=== PATIENT | male | born 1950 | race Caucasian/White ===

== ENCOUNTER 2017-06-09 22:43 | Inpatient (IN) | payer OTHER ==
[~2017-06-09] VITALS: Ht 175.3 cm; Wt 79.1 kg
[~2017-06-09 22:43] MED LIST: ADULT LOW DOSE81 M1 PO; LEVOTHYROXINE75 MCG PO; LISINOPRIL10 MG PO; OMEPRAZOLE20 MG PO; SF 5000 PLUS51 GM DT; SIMVASTATIN20 MG PO
[2017-06-09 23:18] LABS: HEMATOCRIT 43.7 % (38.0-50.0); MCH 31.7 PG (29.0-34.0); MCV 90.7 FL (86-99); MEAN PLAT.VOLUME 9.2 uM^3 (9.0-12.4); PLATELET COUNT 301 K/uL (156-360); RBC DIS.WIDTH-CV 12.5 % (11.8-14.6); RBC DIS.WIDTH-SD 41.9 % (39-53); RED BLOOD COUNT 4.82 M/uL (4.00-5.50)
[2017-06-09 23:26] LABS: CHLORIDE 108 mEq/L (99-109); POTASSIUM 5.2 mEq/L (3.7-5.4); SODIUM 138 mEq/L (136-147)
[2017-06-09 23:29] LABS: GLUCOSE 159 mg/dL (70-99)
[2017-06-09 23:30] LABS: ANION GAP 13 MEQ/L (2-14); TOTAL BILIRUBIN 0.8 mg/dL (0.0-1.0)
[2017-06-09 23:32] LABS: ADD MIUA? YES; BILIRUBIN NEGATIVE; BLOOD NEGATIVE; COLOR YELLOW ((YELLOW)); GLUCOSE (STRIP) NEGATIVE; KETONES 5; LEUKOCYTES NEGATIVE; NITRITE NEGATIVE; PROTEIN (STRIP) 100; SPECIFIC GRAVITY 1.026 (1.000-1.030); UROBILINOGEN 0.2 MG/DL (0.2-1.0)
[2017-06-09 23:32] LABS: ALKALINE PHOSPHATASE 77 IU/L (3-129); GFR ESTIMATE (CALCULATED) > 59 mL/min/
[2017-06-09 23:33] LABS: UREA NITROGEN (BUN) 23 mg/dL (9-23)
[2017-06-09 23:36] LABS: LIPASE 19 U/L (1.0-51.0)
[2017-06-09 23:40] LABS: BACTERIA RARE /HPF; EPITHELIAL CELLS RARE /HPF; GRANULAR CASTS 0-5 /LPF; HYALINE CASTS 15-20 /LPF; MUCUS 1+ /LPF; RED BLOOD CELLS 0-5 /HPF (0-5); UCUL ADDED? NO; WHITE BLOOD CELLS 0-5 /HPF (0-5)
[2017-06-09 23:43] LABS: TROP-I INTERPRETATION NEGATIVE; TROPONIN-I < 0.01 ng/mL (0.0-0.30)
[2017-06-10] MEDS ORDERED: VITAMIN D31000 UNIT PO (01:28)
[2017-06-10] MEDS ORDERED: COZAAR100 MG PO (01:28)
[2017-06-10 04:05] VITALS: BP 173/89
[2017-06-10 04:28] LABS: HEMATOCRIT 41.5 % (38.0-50.0); MCH 31.4 PG (29.0-34.0); MCHC 34.2 G/DL (30.0-36.0); MCV 91.8 FL (86-99); MEAN PLAT.VOLUME 9.5 uM^3 (9.0-12.4); PLATELET COUNT 281 K/uL (156-360); RBC DIS.WIDTH-CV 12.8 % (11.8-14.6); RBC DIS.WIDTH-SD 43.6 % (39-53); RED BLOOD COUNT 4.52 M/uL (4.00-5.50); WHITE BLOOD COUNT 18.9 K/uL (4.1-10.2)
[2017-06-10 08:00] VITALS: BP 152/80
[2017-06-10 08:50] VITALS: BP 152/81
[2017-06-10 11:40] VITALS: BP 137/81
[2017-06-10 16:40] VITALS: BP 139/84
[2017-06-10 19:53] VITALS: BP 141/73
[2017-06-11 00:01] VITALS: BP 138/72
[2017-06-11 06:51] LABS: HEMATOCRIT 28.9 % (38.0-50.0); MCH 31.5 PG (29.0-34.0); MCHC 33.2 G/DL (30.0-36.0); MCV 94.8 FL (86-99); MEAN PLAT.VOLUME 9.8 uM^3 (9.0-12.4); PLATELET COUNT 226 K/uL (156-360); RBC DIS.WIDTH-CV 13.7 % (11.8-14.6); RBC DIS.WIDTH-SD 47.7 % (39-53); WHITE BLOOD COUNT 19.2 K/uL (4.1-10.2)
[2017-06-11 06:56] LABS: RED BLOOD COUNT 3.05 M/uL (4.00-5.50)
[2017-06-11 08:22] VITALS: BP 139/69
[2017-06-11 15:26] VITALS: BP 136/73
[2017-06-11 23:40] VITALS: BP 132/77
[2017-06-12 04:00] VITALS: BP 132/77
[2017-06-12 07:00] LABS: EOSINOPHIL (%) 0.1 % (0-5); HEMATOCRIT 24.2 % (38.0-50.0); IMMATURE GRANULOCYTE (%) 0.8 % (0.0-0.7); IMMATURE GRANULOCYTE COUNT 0.1 K/uL; INSTRUMENT ABS NEUTROPHIL CT 8.9 K/uL; LYMPHOCYTE COUNT 0.8 K/uL (1.0-2.8); MCH 32.4 PG (29.0-34.0); MCHC 33.5 G/DL (30.0-36.0); MCV 96.8 FL (86-99); MEAN PLAT.VOLUME 9.7 uM^3 (9.0-12.4); MONOCYTE (%) 7.1 % (3-12); MONOCYTE COUNT 0.8 K/uL (0-0.8); NEUTROPHIL (%) 84.2 % (45-76); NEUTROPHIL COUNT 8.9 K/uL (1.8-6.4); PLATELET COUNT 182 K/uL (156-360); RBC DIS.WIDTH-CV 13.7 % (11.8-14.6); WHITE BLOOD COUNT 10.5 K/uL (4.1-10.2)
[2017-06-12 08:00] VITALS: BP 129/71
[2017-06-12 11:14] VITALS: BP 126/68
[2017-06-12 15:29] VITALS: BP 141/79
[2017-06-12 23:21] VITALS: BP 144/76
[2017-06-13 04:00] VITALS: BP 144/76
[2017-06-13 07:50] VITALS: BP 131/74
[2017-06-13] MEDS ORDERED: HYDROCODON-ACE1 EAC7 PO (12:20)
== END 2017-06-13 14:21 | disposition home or self-care (01) | DRG 330 ==
LOC: EME → EDBD 22:43 → EME 06-10 01:31 → SDC 06-10 01:31 → 2SOUTH 06-10 02:53 → 3EAST 06-10 02:53 → ENRESERV 06-10 02:55 → 3EAST 06-10 03:53
PROVIDERS: Emergency Medicine; Surgery
PROC: 0DBA0ZZ Excision of Jejunum, Open Approach (ICD-10-PCS; principal; 2017-06-10)
DX: K55.019 Acute (reversible) ischemia of small intestine, extent unspecified (principal); K46.0 Unspecified abdominal hernia with obstruction, without gangrene; R18.8 Other ascites; K55.9 Vascular disorder of intestine, unspecified; I10 Essential (primary) hypertension; I25.10 Atherosclerotic heart disease of native coronary artery without angina pectoris; K21.9 Gastro-esophageal reflux disease without esophagitis; Z79.82 Long term (current) use of aspirin
CPT/HCPCS: 74177; 80053; 81003; 83605; 83690; 84484; 85025; 85027; 87040; 88307; 93005; 99281; 99285; J0330; J0690; J1100; J1170; J1335; J1650; J1885; J2270; J2405; J2543; J2710; J3010; J7030; J7120